=== PATIENT | female | born 1965 | race Caucasian/White ===

== ENCOUNTER → 2025-02-06 15:55 | Outpatient (REF) | payer OTHER, SELFPAY | LOC: WDC 15:55 | DX: Z12.31 Encounter for screening mammogram for malignant neoplasm of breast (principal); R92.333 Mammographic heterogeneous density, bilateral breasts | CPT/HCPCS: 77063; 77067 ==

== ENCOUNTER → 2025-06-04 07:49 | Outpatient (REF) | payer OTHER, SELFPAY | LOC: HWRAD 07:49 | PROVIDERS: ATTENDING PHYSICIAN Obstetrics & Gynecology; FAMILY PHYSICIAN Family Medicine | DX: R19.00 Intra-abdominal and pelvic swelling, mass and lump, unspecified site (principal); R14.0 Abdominal distension (gaseous) | CPT/HCPCS: 76830; 76856 ==